=== PATIENT | female | born 2000 | race Caucasian/White ===

== ENCOUNTER 2021-04-03 23:33 | Emergency (ER) | payer OTHER ==
[~2021-04-03] VITALS: Ht 157.5 cm; Wt 56.7 kg
[2021-04-04 01:13] LABS: URINE BILIRUBIN NEGATIVE (Negative); URINE BLOOD TRACE (Negative); URINE CLARITY CLOUDY; URINE COLOR YELLOW; URINE GLUCOSE-RANDOM NEGATIVE (Negative); URINE KETONES NEGATIVE (Negative); URINE PROTEIN TRACE (Negative); URINE SPECIFIC GRAVITY 1.015 (1.005-1.030)
[2021-04-04 01:14] LABS: URINE LEUKOCYTES-REFLEX 2+ (Negative); URINE NITRITE-REFLEX POSITIVE (Negative)
[2021-04-04 01:19] LABS: AMP/METHAMP POSITIVE (Negative); BARBITURATES Negative (Negative); BENZODIAZEPINES Negative (Negative); COCAINE Negative (Negative); METHADONE Negative (Negative); OPIATES Negative (Negative); PCP Negative (Negative); THC POSITIVE (Negative)
[2021-04-04] MEDS ORDERED: CIPROFLOXACIN500 M1 PO (01:26)
[2021-04-04 01:29] LABS: CASTS None Seen /LPF (None Seen); SQUAMOUS 0-3 Few /LPF (0-3); URINE WBC-REFLEX >25 Many /HPF (0-5)
[2021-04-04 01:30] LABS: AMORPHOUS PHOSPHATES Moderate /LPF (None Seen); URINE RBC 0-2 Rare /HPF (0-2)
[2021-04-04 02:31] VITALS: BP 128/81
== END 2021-04-04 02:32 | disposition home or self-care (01) ==
LOC: M.ERS 23:33
PROVIDERS: Personal Emergency Response Attendant
DX: N73.0 Acute parametritis and pelvic cellulitis (principal); M94.0 Chondrocostal junction syndrome [Tietze]; I10 Essential (primary) hypertension; F17.210 Nicotine dependence, cigarettes, uncomplicated